=== PATIENT | male | born 1980 | race African-American/Black ===

== ENCOUNTER 2024-03-23 05:36 | Emergency (ER) | payer OTHER ==
[2024-03-23 05:43] VITALS: BP 140/97; PULSE 76; RESP 18; TEMP 98.6; BMI 40.7
[2024-03-23] MEDS ORDERED: ACETAMINOPHEN 325 MG TABLET (FP) ONE (07:54)
[2024-03-23] MEDS: ACETAMINOPHEN 500 MG TABLET (FP) PO ONE (07:56)
== END 2024-03-23 10:59 | disposition home or self-care (01) ==
LOC: JER 05:36
DX: S50.811A Abrasion of right forearm, initial encounter (principal); S80.211A Abrasion, right knee, initial encounter; V29.408A Other motorcycle driver injured in collision with unspecified motor vehicles in traffic accident, initial encounter; Y92.410 Unspecified street and highway as the place of occurrence of the external cause
CPT/HCPCS: 73562-TC-RT-FY; 99283-25